=== PATIENT | female | born 1935 | race Caucasian/White ===

== ENCOUNTER 2023-02-10 23:20 | Emergency (ER) | payer OTHER ==
[~2023-02-10] VITALS: Ht 170.2 cm; Wt 61.2 kg
[2023-02-10] MEDS ORDERED: ATOR10TA PO (23:29)
[2023-02-10] MEDS ORDERED: GABA-532 PO (23:29)
[2023-02-11 00:25] VITALS: BP 130/85; TEMP 98.5; O2SAT 99
== END 2023-02-11 00:25 | disposition home or self-care (01) ==
LOC: ER 23:27
DX: S81.011A Laceration without foreign body, right knee, initial encounter (principal); E78.5 Hyperlipidemia, unspecified; Z79.899 Other long term (current) drug therapy; W01.0XXA Fall on same level from slipping, tripping and stumbling without subsequent striking against object, initial encounter; Y93.89 Activity, other specified; Y92.89 Other specified places as the place of occurrence of the external cause; Y99.8 Other external cause status
CPT/HCPCS: A4606; A4663